=== PATIENT | female | born 1930 | race Caucasian/White ===

== ENCOUNTER → 2017-06-15 | Outpatient (CLI) | payer MEDICARE ==
[~2017-06-15] VITALS: Ht 149.9 cm; Wt 60.3 kg
[~2017-06-15] MED LIST: ASPI325T PO; BUDE0.5S NEB; CALC200S NASAL; CHLORHEXIDINE GLUCONATE 2 % 1 PACK (2 CLOTHS) TOPICAL PRN; DIGO0.12 PO; DILT300C3 PO; DO NOT ADM ANY ANTICOAGULANT DRUGS PRN; FERR325C PO; FLEE5TAB PO; FLUMAZENIL 0.5 MG/5 ML VIAL IV PRN; FORM20NE INH; FURO20TA PO; GABA100C4 PO; INSULIN HUMAN REGULAR 1,000 UNITS/10 ML VIAL SQ PRN; IOHEXOL 350 MG/ML 50 ML BTL (for RAD DIAG) OTHER ONE; IPRASOL INH; LACTATED RINGER'S 1000 ML IV PRN; LEVO50TA4 PO; LOVA40TA PO; METOPROLOL TARTRATE 25 MG TAB PO PRN; NALOXONE HCL 0.4 MG/ML AMP IV PRN; PANT40TA3 PO; POVIDONE IODINE 5% (ANTISEPSIS KIT) 4 APPLICATIONS EACH NARE PRN; PRED5TAB PO; PROPOFOL 200 MG/20 ML AMP IV ONE; ROFL1TAB2 PO; SODIUM CHLORID 0.9% 500 ML IV PRN; TRAM50TA PO; VENTAER INH; VITA1000 PO
--- NOTE | 2017-06-15 17:26 | RADRPT ---
EXAM DATE/TIME: 06/15/2017 16:33 [place] COMPARISON: No previous studies available for comparison. INDICATIONS : Obstruction. FLUORO TIME: 2.1 minutes IMAGE COUNT: 5 CONTRAST: Instilled by Ordering Physician MEDICAL HISTORY : None. SURGICAL HISTORY : None. ENCOUNTER: Initial ACUITY: 1 day PAIN SCORE: Non-responsive. LOCATION: Bilateral abdomen FINDINGS: An ERCP was performed by the ordering physician. The images demonstrate initially a biliary stent in place. There is filling of a dilated common naty e duct. No obvious filling defect or obstructing mass is identified> CONCLUSION: ERCP as above. Andriy Beltrán MD on June 15, 2017 at 17:24 Board Certified Radiologist. This report was verified electronically.
[2017-06-15 18:23] VITALS: BP 116/62; PULSE 77; RESP 18; TEMP 98; O2SAT 94
--- NOTE | 2017-06-16 10:03 | MR ---
cc: HOANG BANDA M.D. DATE OF 1930 DATE OF PROCEDURE 06/15/2017 PROCEDURE ERCP with stent removal occluded cholangiogram with balloon sweep of the duct. INDICATION An 87-year-old lady who had a laparoscopic cholecystectomy, choledocholithiasis. The patient had a stent placed a few months ago. She is here for removal and ensuring that there is no common bile duct stone. PROCEDURE After informing the patient about the procedure and complications, consent was signed. The patient was placed on her abdomen after intubation and sedation. The scope was placed in the mouth, advanced under video guidance to the second portion of the duodenum. The ampulla was identified with sphincterotomy. The stent was already migrated into the distal part of the duct which required extraction with rat tooth forceps. After that a balloon was passed through the duct. Occluded cholangiogram was performed with sweeping of the duct without any filling defect. FINDINGS 1. EGD limited exam normal. 2. Stent already migrated in the common bile duct, removed as above. 3. Large dilated common bile duct without filling defect. RECOMMENDATIONS 1. Water until the morning. 2. Advance diet as tolerated. MD LARA Cazares/SSB /5:23 PM /10:00 AM
--- NOTE | 2017-06-16 19:13 | EKG ---
Date Performed: 06/15/2017 Time Performed: 14:31:11 PTAGE: 87 years EKG: ATRIAL FIBRILLATION NONSPECIFIC ST & T-WAVE ABNORMALITY, MAY BE DUE TO ISCHEMIA ABNORMAL EC G PREVIOUS TRACING : 12/29/2014 06.29 Compared to the previous tracing, atrial fibrillation has r eplaced Sinus rhythm , ST changes are more prominent DOCTOR: Andre Cortez Interpretating Date/Time 06/16/2017 19:10:54
== END ==
LOC: HSDC 13:44
PROVIDERS: ATTEND Internal Medicine Gastroenterology
DX: Z46.59 Encounter for fitting and adjustment of other gastrointestinal appliance and device (principal); K80.50 Calculus of bile duct without cholangitis or cholecystitis without obstruction; R94.31 Abnormal electrocardiogram [ECG] [EKG]
CPT/HCPCS: 00740; 43275; 74330; 93005; C1769; Q9967